=== PATIENT | male | born 1990 | race Caucasian/White ===

== ENCOUNTER 2021-08-15 09:10 | Emergency (ER) | payer OTHER, BC ==
[2021-08-15] MEDS ORDERED: Sodium Chloride 0.9% 10 ML Syringe FLUSH PRN (09:25)
[2021-08-15] MEDS ORDERED: Sodium Chloride 0.9% 1,000 ML IV SCH (09:30)
== END 2021-08-15 10:23 | disposition home or self-care (01) ==
LOC: LB.ED 09:10
DX: T75.4XXA Electrocution, initial encounter (principal); S46.392A Other injury of muscle, fascia and tendon of triceps, left arm, initial encounter; F17.210 Nicotine dependence, cigarettes, uncomplicated; W85.XXXA Exposure to electric transmission lines, initial encounter
CPT/HCPCS: 36415; 80053; 82550; 85025; 93005; 99283-25